=== PATIENT | female | born 1950 | race Caucasian/White ===

== ENCOUNTER 2017-09-27 14:55 | Inpatient (IN) | payer MEDICARE, BC ==
[~2017-09-27] VITALS: Ht 160 cm; Wt 60.3 kg
[~2017-09-27 14:55] MED LIST: CLON1TAB PO; DONE5TAB14 PO; LEVO50TA5 PO; OMEP10CA4 PO; SERT25TA3 PO; [UNRECOGNIZED DRUG - OTHER]
[2017-09-27] MEDS ORDERED: CYAN1TAB29 PO (15:19)
[2017-09-27] MEDS ORDERED: CLON1TAB PO (15:19)
[2017-09-27] MEDS ORDERED: LOSA100T2 PO (15:19)
[2017-09-27] MEDS ORDERED: MEMA5TAB PO (15:19)
[2017-09-27] MEDS ORDERED: LEVO112T2 PO (15:19)
[2017-09-27] MEDS ORDERED: VORT10TA PO (15:19)
[2017-09-27] MEDS ORDERED: vitamin e PO (15:19)
[2017-09-27] MEDS ORDERED: CHOL5000 PO (15:19)
[2017-09-27] MEDS ORDERED: ELUX100T PO (15:19)
[2017-09-27] MEDS ORDERED: SODIUM CHLORIDE FLUSH 10ML SYR IVF ONE (15:30)
[2017-09-27 15:43] LABS: HEMATOCRIT 37.4 % (34.6-47.8); HEMOGLOBIN 12.7 g/dL (11.7-16.4); WHITE BLOOD COUNT 5.3 x10^3/uL (3.4-10)
[2017-09-27 15:52] LABS: ASPARTATE AMINO TRANSFERASE 13 U/L (15-37); BLOOD UREA NITROGEN 15 mg/dL (7-18)
[2017-09-27 15:58] LABS: IS PT STATUS REG ER OR PRE ER? YES
[2017-09-27] MEDS ORDERED: HYDROcodone/APAP 5/325 TABLET PO PRN (17:30)
[2017-09-27] MEDS ORDERED: LABETALOL 5MG/ML, 20ML IVPush PRN (17:30)
[2017-09-27] MEDS ORDERED: ENALAPRILAT 1.25 MG/ML, 2ML IVPush PRN (17:30)
[2017-09-27] MEDS ORDERED: ENOXAPARIN 40 MG/0.4 ML SQ SCH (17:30)
[2017-09-27] MEDS ORDERED: NITROGLYCERIN 0.4 MG BOTTLE (25 TABS) SL PRN (17:30)
[2017-09-27] MEDS ORDERED: ONDANSETRON ODT 4 MG PO PRN (17:30)
[2017-09-27 19:30] VITALS: BP 85/52
[2017-09-27 20:46] LABS: IS PT STATUS REG ER OR PRE ER? NO
[2017-09-27] MEDS ORDERED: ELUXADOLINE PO SCH (21:00)
[2017-09-27 21:30] VITALS: BP 104/56
[2017-09-27] MEDS ORDERED: HEPARIN 5,000 UNITS/ML, 1ML IV ONE (22:00)
[2017-09-27] MEDS: VITAMIN E 400 UNITS CAPSULE PO SCH (22:14)
[2017-09-27] MEDS: ATORVASTATIN 20 MG TABLET PO SCH (22:14)
[2017-09-27] MEDS: MEMANTINE 5MG TABLET PO SCH (22:14)
[2017-09-27] MEDS: HEPARIN 25,000 UNITS/500ML PMX 500 ML IV PRN (22:42)
[2017-09-28] VITALS (7 sets, daily range): BP systolic 99–165; BP diastolic 66–100
[2017-09-28 02:29] LABS: HEMATOCRIT 33.5 % (34.6-47.8); HEMOGLOBIN 11.4 g/dL (11.7-16.4); WHITE BLOOD COUNT 5.5 x10^3/uL (3.4-10)
[2017-09-28 02:38] LABS: BLOOD UREA NITROGEN 18 mg/dL (7-18)
[2017-09-28 02:42] LABS: ASPARTATE AMINO TRANSFERASE 11 U/L (15-37); IS PT STATUS REG ER OR PRE ER? NO
[2017-09-28] MEDS: HEPARIN 5,000 UNITS/ML, 1ML IV PRN ×2 (06:15→20:48)
[2017-09-28] MEDS: LEVOTHYROXINE 112 MCG TABLET PO SCH (06:16)
[2017-09-28] MEDS: ASPIRIN 325 MG TABLET EC PO SCH (06:16)
[2017-09-28] MEDS ORDERED: REGADENOSON 0.4 MG/5 ML SYRINGE ONE (07:44)
[2017-09-28] MEDS: NEUTRA PHOS K 250 MG TABLET PO SCH ×2 (08:41→20:46)
[2017-09-28] MEDS: CYANOCOBALAMIN 1,000 MCG TABLET PO SCH (08:41)
[2017-09-28] MEDS: MEMANTINE 5MG TABLET PO SCH (08:41)
[2017-09-28] MEDS: VITAMIN E 400 UNITS CAPSULE PO SCH ×2 (08:42→20:46)
[2017-09-28] MEDS: CHOLECALCIFEROL 1,000 UNIT TABLET PO SCH (08:42)
[2017-09-28] MEDS: ELUXADOLINE HOMEMEDPO SCH ×2 (08:43→20:48)
[2017-09-28] MEDS ORDERED: VORTIOXETINE HYDROBROMIDE HOMEMEDPO SCH (09:00)
[2017-09-28] MEDS: NITROGLYCERIN 0.4 MG BOTTLE (25 TABS) SL PRN ×2 (09:29→09:34)
[2017-09-28] MEDS ORDERED: NITROGLYCERIN 0.4 MG/SPRAY SL PRN (09:30)
[2017-09-28] MEDS ORDERED: DONE10TA7 PO (09:41)
[2017-09-28] MEDS ORDERED: SERT100T5 PO (09:44)
[2017-09-28] MEDS: SERTRALINE 100MG TABLET PO SCH (12:32)
[2017-09-28] MEDS: ATORVASTATIN 20 MG TABLET PO SCH (20:46)
[2017-09-28] MEDS: MEMANTINE 10MG TABLET PO SCH (20:54)
[2017-09-29 02:19] VITALS: BP 118/82
[2017-09-29] MEDS: LEVOTHYROXINE 112 MCG TABLET PO SCH (06:19)
[2017-09-29] MEDS: ASPIRIN 325 MG TABLET EC PO SCH (06:19)
[2017-09-29] MEDS: HEPARIN 25,000 UNITS/500ML PMX 500 ML IV PRN (06:37)
[2017-09-29 06:59] VITALS: BP 130/84
[2017-09-29] MEDS: ELUXADOLINE HOMEMEDPO SCH ×2 (09:00→09:06)
[2017-09-29] MEDS: MEMANTINE 10MG TABLET PO SCH (09:05)
[2017-09-29] MEDS: CHOLECALCIFEROL 1,000 UNIT TABLET PO SCH (09:05)
[2017-09-29] MEDS: VITAMIN E 400 UNITS CAPSULE PO SCH (09:05)
[2017-09-29] MEDS: CYANOCOBALAMIN 1,000 MCG TABLET PO SCH (09:06)
[2017-09-29] MEDS ORDERED: LISINOPRIL 5 MG TABLET PO SCH (10:30)
[2017-09-29] MEDS ORDERED: CARVEDILOL 3.125 MG TABLET PO SCH (10:30)
[2017-09-29 10:48] LABS: HEMATOCRIT 37.9 % (34.6-47.8); HEMOGLOBIN 12.8 g/dL (11.7-16.4); WHITE BLOOD COUNT 3.8 x10^3/uL (3.4-10)
[2017-09-29 10:54] LABS: BLOOD UREA NITROGEN 14 mg/dL (7-18)
[2017-09-29] MEDS: HEPARIN 5,000 UNITS/ML, 1ML IV PRN (11:09)
[2017-09-29] MEDS ORDERED: LIDOCAINE 2%, 20ML ONE (11:40)
[2017-09-29] MEDS ORDERED: VERAPAMIL 2.5 MG/ML, 2ML ONE (11:40)
[2017-09-29] MEDS ORDERED: FENTANYL PF 100 MCG/2ML ONE (11:40)
[2017-09-29] MEDS ORDERED: TICAGRELOR 90 MG TABLET ONE (11:40)
[2017-09-29] MEDS ORDERED: BIVALIRUDIN 250 MG ONE (11:40)
[2017-09-29] MEDS ORDERED: MIDAZOLAM 1 MG/ML, 5ML ONE (11:41)
[2017-09-29] MEDS ORDERED: HEPARIN 1,000 UNITS/ML, 10ML ONE (11:41)
[2017-09-29] MEDS ORDERED: SODIUM CHLORIDE 0.9% 1,000 ML IV SCH (12:42)
[2017-09-29] MEDS ORDERED: CARV3.1212 PO ×2 (13:20→15:46)
[2017-09-29] MEDS ORDERED: LISI5TAB7 PO (13:20)
[2017-09-29] MEDS ORDERED: ATOR20TA9 PO (13:20)
[2017-09-29] MEDS ORDERED: ASPI-496 PO (13:22)
[2017-09-29] MEDS: SERTRALINE 100MG TABLET PO SCH (13:42)
[2017-09-29 14:55] VITALS: BP 114/71
[2017-09-30] MEDS ORDERED: CARVEDILOL 3.125 MG TABLET PO SCH (09:00)
== END 2017-09-29 17:50 | disposition home health service (06) | DRG 287 ==
LOC: ED 15:51 → EDIP 16:23 → 5SO 18:38
PROVIDERS: ADMIT Internal Medicine; ATTEND Internal Medicine
PROC: 4A023N7 Measurement of Cardiac Sampling and Pressure, Left Heart, Percutaneous Approach (ICD-10-PCS; principal; 2017-09-29)
PROC: B2111ZZ Fluoroscopy of Multiple Coronary Arteries using Low Osmolar Contrast (ICD-10-PCS; 2017-09-29)
PROC: B2151ZZ Fluoroscopy of Left Heart using Low Osmolar Contrast (ICD-10-PCS; 2017-09-29)
DX: R07.9 Chest pain, unspecified (principal); G30.0 Alzheimer's disease with early onset; I08.1 Rheumatic disorders of both mitral and tricuspid valves; I42.9 Cardiomyopathy, unspecified; F02.80 Dementia in other diseases classified elsewhere, unspecified severity, without behavioral disturbance, psychotic disturbance, mood disturbance, and anxiety; E03.9 Hypothyroidism, unspecified; F32.9 Major depressive disorder, single episode, unspecified; F41.1 Generalized anxiety disorder; I10 Essential (primary) hypertension; K21.9 Gastro-esophageal reflux disease without esophagitis; E05.90 Thyrotoxicosis, unspecified without thyrotoxic crisis or storm; R60.0 Localized edema; K58.9 Irritable bowel syndrome, unspecified; Z80.0 Family history of malignant neoplasm of digestive organs; Z81.8 Family history of other mental and behavioral disorders; Z82.49 Family history of ischemic heart disease and other diseases of the circulatory system; Z87.891 Personal history of nicotine dependence
CPT/HCPCS: 36415; 71010; 80048; 80053; 80061; 81001; 83690; 83735; 84100; 84439; 84443; 84484; 85025; 85379; 85520; 85610; 87086; 93005; 93306; 93458; 99156; 99285; C1769; C1894; J0583; J1644; J2250; J2785; J3010; J3490; Q9967

== ENCOUNTER → 2018-05-25 | Outpatient (CLI) | payer MEDICARE, BC ==
[~2018-05-25] MED LIST changes: +ASPI-496 PO; +ATOR20TA9 PO; +CARV3.1212 PO; +CARV6.252 PO; +CHOL5000 PO; +CYAN1TAB29 PO; +DONE10TA7 PO; +ELUX100T PO; +LEVO112T2 PO; +LISI5TAB7 PO; +LOSA100T2 PO; +MEMA5TAB PO; +SERT100T5 PO; +VORT10TA PO; +viberzi PO; +vitamin e PO
== END | disposition home or self-care (01) ==
LOC: CFH 09:24 → EDSTATUS 10:00
DX: Z12.31 Encounter for screening mammogram for malignant neoplasm of breast (principal); Z13.820 Encounter for screening for osteoporosis; M85.89 Other specified disorders of bone density and structure, multiple sites; N95.9 Unspecified menopausal and perimenopausal disorder
CPT/HCPCS: 77080; 77067

== ENCOUNTER 2018-06-17 11:29 | Inpatient (IN) | payer MEDICARE, BC ==
[~2018-06-17] VITALS: Ht 162.6 cm; Wt 53.4 kg
[2018-06-17] MEDS ORDERED: MAALOX/HYOSCYAMINE/LIDOCAINE 45 ML BTL ONE (12:18)
[2018-06-17] MEDS ORDERED: LORazepam 0.5MG TABLET ONE (12:18)
[2018-06-17] MEDS ORDERED: MAALOX/HYOSCYAMINE/LIDOCAINE 45 ML BTL PO ONE (12:30)
[2018-06-17] MEDS ORDERED: LORazepam 0.5MG TABLET PO ONE (12:30)
[2018-06-17 12:47] LABS: BASOPHILS # (AUTO) 0.05 x10^3/uL (0-0.1); BASOPHILS % (AUTO) 1 % (0-1); EOSINOPHILS % (AUTO) 1 % (1-7); LYMPHOCYTES # (AUTO) 2.61 x10^3/uL (1-3.4); LYMPHOCYTES % (AUTO) 33 % (22-44); MD NO; MEAN CORPUSCULAR HEMOGLOBIN 30.5 pg (27.0-34.8); MEAN CORPUSCULAR HGB CONC 33.7 g/dL (32.4-35.8); MEAN CORPUSCULAR VOLUME 90.5 fL (80-100); MONOCYTES % (AUTO) 9 % (2-9); NEUTROPHILS # (AUTO) 4.48 x10^3/uL (1.8-6.8); NEUTROPHILS % (AUTO) 56 % (42-75); PLATELET COUNT 226 x10^3/uL (130-400); RED BLOOD COUNT 4.64 x10^6/uL (3.82-5.3); RED CELL DISTRIBUTION WIDTH 13.8 % (9.6-15.2)
[2018-06-17 12:57] LABS: INTERNATIONAL NORMALIZED RATIO 1.04 (0.93-1.1); PROTHROMBIN TIME 10.7 Seconds (9.6-11.5)
[2018-06-17 13:01] LABS: ALBUMIN 4.1 g/dL (3.4-5.0); ANION GAP 8 mmol/L (5-15); CALCIUM 9.4 mg/dL (8.5-10.1); CHLORIDE 109 mmol/L (98-107)
[2018-06-17 13:07] LABS: ALANINE AMINOTRANSFERASE 34 U/L (12-78); ALKALINE PHOSPHATASE 62 U/L (45-117); BILIRUBIN,TOTAL 0.8 mg/dL (0.2-1.0); CREATININE 1.11 mg/dL (0.55-1.02); TOTAL PROTEIN 7.6 g/dL (6.4-8.2); TROPONIN I 0.092 ng/mL (0.000-0.045)
[2018-06-17] MEDS ORDERED: ACETAMINOPHEN 650 MG/20.3 ML UDC PO PRN (15:00)
[2018-06-17] MEDS ORDERED: NITROGLYCERIN SINGLE TAB 0.4 MG SL PRN (15:00)
[2018-06-17] MEDS ORDERED: morphine SULFATE 10 MG/ML, 1ML IV PRN (15:00)
[2018-06-17] MEDS ORDERED: ONDANSETRON 2MG/ML, 2ML IVP PRN (15:00)
[2018-06-17] MEDS ORDERED: HEPARIN 5,000 UNITS/ML, 1ML SQ SCH (15:00)
[2018-06-17] MEDS ORDERED: NITROGLYCERIN 0.4 MG/SPRAY SL PRN (15:00)
[2018-06-17] MEDS ORDERED: ASPIRIN 325 MG TABLET EC PO ONE (15:00)
[2018-06-17] MEDS ORDERED: NITROGLYCERIN 0.4 MG BOTTLE (25 TABS) SL PRN (15:00)
[2018-06-17 15:24] VITALS: BP 96/68
[2018-06-17] MEDS ORDERED: MAALOX/HYOSCYAMINE/LIDOCAINE 45 ML BTL PO PRN (15:30)
[2018-06-17] MEDS ORDERED: CALCIUM CARBONATE 500 MG TAB.CHEW PO PRN (15:30)
[2018-06-17 15:32] LABS: THYROID STIMULATING HORMONE 5.06 mIU/L (0.358-3.740)
[2018-06-17] MEDS ORDERED: MEGE20TA PO (16:26)
[2018-06-17] MEDS ORDERED: ELUX100T PO (16:26)
[2018-06-17 19:42] VITALS: BP 103/69
[2018-06-17] MEDS: MEMANTINE 10MG TABLET PO SCH (22:30)
[2018-06-17] MEDS ORDERED: ENOXAPARIN 60 MG/0.6 ML SQ ONE (22:30)
[2018-06-17] MEDS: DONEPEZIL 10 MG TABLET PO SCH (22:30)
[2018-06-17] MEDS: CARVEDILOL 6.25 MG TABLET PO SCH (22:30)
[2018-06-17] MEDS: OMEPRAZOLE 20 MG CAPSULE.DR PO SCH (22:30)
[2018-06-17] MEDS: SODIUM CHLORIDE FLUSH 10ML SYR IVF SCH (22:31)
[2018-06-17 22:43] LABS: MICROSCOPIC INDICATED
[2018-06-17 22:44] LABS: CULTURE INDICATED? YES
[2018-06-18 03:37] VITALS: BP_SYST 88; BP_SYST 90; BP_DIAS 58; BP_DIAS 60
[2018-06-18 05:34] LABS: ANION GAP 7 mmol/L (5-15); CHLORIDE 112 mmol/L (98-107); CHOLESTEROL, TOTAL 151 mg/dL (140-239); CREATININE 1.18 mg/dL (0.55-1.02)
[2018-06-18 05:35] LABS: CHOL/HDL RATIO 2.8; HDL CHOL % 36 % (28-40); HDL CHOLESTEROL (DIRECT) 54 mg/dL (40-60); LDL CHOLESTEROL,CALCULATED 78 mg/dL (54-169); LDL/HDL RATIO 1.4 (0.5-3.0); TRIGLYCERIDES 95 mg/dL (50-200); VLDL CHOLESTEROL 19 mg/dL (0-25)
[2018-06-18] MEDS: ASPIRIN 325 MG TABLET EC PO SCH (06:15)
[2018-06-18 06:23] LABS: BASOPHILS # (AUTO) 0.04 x10^3/uL (0-0.1); BASOPHILS % (AUTO) 1 % (0-1); EOSINOPHILS # (AUTO) 0.08 x10^3/uL (0-0.4); EOSINOPHILS % (AUTO) 2 % (1-7); LYMPHOCYTES # (AUTO) 1.94 x10^3/uL (1-3.4); LYMPHOCYTES % (AUTO) 38 % (22-44); MD NO; MEAN CORPUSCULAR HEMOGLOBIN 30.5 pg (27.0-34.8); MEAN CORPUSCULAR HGB CONC 33.4 g/dL (32.4-35.8); MEAN CORPUSCULAR VOLUME 91.5 fL (80-100); MEAN PLATELET VOLUME 9.6 fL (7.4-10.4); MONOCYTES # (AUTO) 0.46 x10^3/uL (0.2-0.8); MONOCYTES % (AUTO) 9 % (2-9); NEUTROPHILS % (AUTO) 51 % (42-75); PLATELET COUNT 166 x10^3/uL (130-400); RED BLOOD COUNT 4.05 x10^6/uL (3.82-5.3); RED CELL DISTRIBUTION WIDTH 13.5 % (9.6-15.2)
[2018-06-18 07:09] VITALS: BP 96/66
[2018-06-18] MEDS: SODIUM CHLORIDE FLUSH 10ML SYR IVF SCH ×2 (08:36→21:27)
[2018-06-18] MEDS: SERTRALINE 100MG TABLET PO SCH (08:37)
[2018-06-18] MEDS: MEMANTINE 10MG TABLET PO SCH ×2 (08:37→21:25)
[2018-06-18] MEDS: LEVOTHYROXINE 112 MCG TABLET PO SCH (08:37)
[2018-06-18] MEDS: CARVEDILOL 6.25 MG TABLET PO SCH (08:37)
[2018-06-18] MEDS: OMEPRAZOLE 20 MG CAPSULE.DR PO SCH ×2 (08:37→21:24)
[2018-06-18] MEDS ORDERED: TEMPLATE NON-FORMULARY MED. (Aspirin** (Aspir 81**) 81 MG) PO SCH (09:00)
[2018-06-18] MEDS: ENOXAPARIN 60 MG/0.6 ML SQ SCH ×2 (11:07→21:24)
[2018-06-18 12:13] VITALS: BP 100/66
[2018-06-18] MEDS ORDERED: ERGOCALCIFEROL 50,000 UNIT CAPSULE PO SCH (16:00)
[2018-06-18] MEDS ORDERED: CARVEDILOL 6.25 MG TABLET PO SCH (21:00)
[2018-06-18 21:23] VITALS: BP 119/78
[2018-06-18] MEDS: DONEPEZIL 10 MG TABLET PO SCH (21:24)
[2018-06-18] MEDS: CARVEDILOL 3.125 MG TABLET PO SCH (21:25)
[2018-06-19 03:51] VITALS: BP 120/81
[2018-06-19 06:10] LABS: ANION GAP 5 mmol/L (5-15); CALCIUM 8.8 mg/dL (8.5-10.1); CHLORIDE 113 mmol/L (98-107); CREATININE 0.99 mg/dL (0.55-1.02)
[2018-06-19] MEDS: ASPIRIN 325 MG TABLET EC PO SCH (06:11)
[2018-06-19 06:14] LABS: TROPONIN I 0.102 ng/mL (0.000-0.045)
[2018-06-19 07:19] VITALS: BP 128/83
[2018-06-19] MEDS: SERTRALINE 100MG TABLET PO SCH (08:04)
[2018-06-19] MEDS: MEMANTINE 10MG TABLET PO SCH (08:04)
[2018-06-19] MEDS: LEVOTHYROXINE 112 MCG TABLET PO SCH (08:04)
[2018-06-19] MEDS: OMEPRAZOLE 20 MG CAPSULE.DR PO SCH (08:04)
[2018-06-19] MEDS: SODIUM CHLORIDE FLUSH 10ML SYR IVF SCH (08:05)
[2018-06-19] MEDS: CARVEDILOL 3.125 MG TABLET PO SCH (08:05)
[2018-06-19] MEDS: ENOXAPARIN 60 MG/0.6 ML SQ SCH (09:41)
[2018-06-19] MEDS ORDERED: OMEP-110 PO (12:20)
[2018-06-19] MEDS ORDERED: CALC200T24 PO (12:20)
[2018-06-19] MEDS ORDERED: CARV3.1212 PO (12:20)
[2018-06-19 13:15] VITALS: BP 139/85
== END 2018-06-19 15:23 | disposition home or self-care (01) | DRG 282 ==
LOC: ED 13:41 → INTOOBSV 13:59 → OBSVTOIN 13:59 → EDIP 13:59 → 5SO 15:10 → DCLOUNGE 06-19 14:59
PROVIDERS: ADMIT Hospitalist; ATTEND Hospitalist
PROC: 0T9B70Z Drainage of Bladder with Drainage Device, Via Natural or Artificial Opening (ICD-10-PCS; principal; 2018-06-17)
DX: I21.4 Non-ST elevation (NSTEMI) myocardial infarction (principal); K21.9 Gastro-esophageal reflux disease without esophagitis; E03.9 Hypothyroidism, unspecified; E55.9 Vitamin D deficiency, unspecified; F03.90 Unspecified dementia, unspecified severity, without behavioral disturbance, psychotic disturbance, mood disturbance, and anxiety; J44.9 Chronic obstructive pulmonary disease, unspecified; F41.9 Anxiety disorder, unspecified; F32.9 Major depressive disorder, single episode, unspecified; I44.0 Atrioventricular block, first degree; Z87.891 Personal history of nicotine dependence; Z82.49 Family history of ischemic heart disease and other diseases of the circulatory system; Z80.0 Family history of malignant neoplasm of digestive organs
CPT/HCPCS: 36415; 70450; 71045; 80048; 80053; 80061; 81001; 82140; 83735; 84443; 84484; 85025; 85610; 85730; 87086; 93005; 93306; 99285; G0378; J1644; J1650

== ENCOUNTER → 2018-06-30 | Outpatient (CLI) | payer MEDICARE, BC ==
[~2018-06-30] MED LIST changes: +CALC200T24 PO; +MEGE20TA PO; +OMEP-110 PO
== END | disposition home or self-care (01) ==
LOC: CFH 13:20
DX: R92.8 Other abnormal and inconclusive findings on diagnostic imaging of breast (principal)
CPT/HCPCS: 77065

== ENCOUNTER → 2018-10-09 | Outpatient (CLI) | payer MEDICARE, BC ==
[~2018-10-09] MED LIST changes: +ATOR20TA37 PO; -ATOR20TA9 PO; +GADOBUTROL 7.5 MMOL/7.5 ML VIAL ONE
== END | disposition home or self-care (01) ==
LOC: CFH 13:37
PROVIDERS: ATTEND Psychiatry & Neurology Neurology
DX: G31.9 Degenerative disease of nervous system, unspecified (principal)
CPT/HCPCS: 70553; 82565; A9585

== ENCOUNTER → 2018-11-02 | Outpatient (CLI) | payer MEDICARE, BC ==
[~2018-11-02] MED LIST changes: -GADOBUTROL 7.5 MMOL/7.5 ML VIAL ONE
== END | disposition home or self-care (01) ==
LOC: CFH 15:01
PROVIDERS: ATTEND Emergency Medicine
DX: N95.0 Postmenopausal bleeding (principal)
CPT/HCPCS: 76830

== ENCOUNTER 2018-11-04 14:18 | Outpatient (CLI) | payer MEDICARE, BC ==
[~2018-11-04 14:18] MED LIST changes: +SERT100T32 PO; -SERT100T5 PO
== END 2018-11-04 23:59 | disposition home or self-care (01) ==
LOC: WOUND 14:18
PROVIDERS: ATTEND Internal Medicine
DX: L89.159 Pressure ulcer of sacral region, unspecified stage (principal); L89.329 Pressure ulcer of left buttock, unspecified stage; L89.43 Pressure ulcer of contiguous site of back, buttock and hip, stage 3; N39.42 Incontinence without sensory awareness; F03.90 Unspecified dementia, unspecified severity, without behavioral disturbance, psychotic disturbance, mood disturbance, and anxiety; I10 Essential (primary) hypertension; E03.9 Hypothyroidism, unspecified; J45.909 Unspecified asthma, uncomplicated; E78.5 Hyperlipidemia, unspecified; F32.9 Major depressive disorder, single episode, unspecified; E78.00 Pure hypercholesterolemia, unspecified; I25.2 Old myocardial infarction; F41.9 Anxiety disorder, unspecified; I25.10 Atherosclerotic heart disease of native coronary artery without angina pectoris; Z86.73 Personal history of transient ischemic attack (TIA), and cerebral infarction without residual deficits
CPT/HCPCS: 97597; G0463

== ENCOUNTER → 2018-11-11 | Outpatient (CLI) | payer MEDICARE, BC | END | disposition home or self-care (01) | LOC: WOUND 14:28 | PROVIDERS: ATTEND Internal Medicine | DX: L89.43 Pressure ulcer of contiguous site of back, buttock and hip, stage 3 (principal); N39.42 Incontinence without sensory awareness; L89.153 Pressure ulcer of sacral region, stage 3; J45.909 Unspecified asthma, uncomplicated; E78.00 Pure hypercholesterolemia, unspecified; F32.9 Major depressive disorder, single episode, unspecified; I10 Essential (primary) hypertension; E03.9 Hypothyroidism, unspecified; I25.2 Old myocardial infarction; F41.9 Anxiety disorder, unspecified; F03.90 Unspecified dementia, unspecified severity, without behavioral disturbance, psychotic disturbance, mood disturbance, and anxiety; E78.5 Hyperlipidemia, unspecified; Z86.73 Personal history of transient ischemic attack (TIA), and cerebral infarction without residual deficits | CPT/HCPCS: 97597 ==

== ENCOUNTER 2018-11-18 14:20 | Outpatient (CLI) | payer MEDICARE, BC | END 2018-11-18 23:59 | disposition home or self-care (01) | LOC: WOUND 14:20 | PROVIDERS: ATTEND Internal Medicine | DX: L89.43 Pressure ulcer of contiguous site of back, buttock and hip, stage 3 (principal); L89.153 Pressure ulcer of sacral region, stage 3; J45.909 Unspecified asthma, uncomplicated; N39.42 Incontinence without sensory awareness; E78.00 Pure hypercholesterolemia, unspecified; F32.9 Major depressive disorder, single episode, unspecified; I10 Essential (primary) hypertension; E03.9 Hypothyroidism, unspecified; I25.2 Old myocardial infarction; F41.9 Anxiety disorder, unspecified; G30.8 Other Alzheimer's disease; F02.80 Dementia in other diseases classified elsewhere, unspecified severity, without behavioral disturbance, psychotic disturbance, mood disturbance, and anxiety; I25.10 Atherosclerotic heart disease of native coronary artery without angina pectoris; E78.5 Hyperlipidemia, unspecified; Z86.73 Personal history of transient ischemic attack (TIA), and cerebral infarction without residual deficits | CPT/HCPCS: G0463 ==

== ENCOUNTER → 2018-11-25 | Outpatient (CLI) | payer MEDICARE, BC | END | disposition home or self-care (01) | LOC: WOUND 10:28 | PROVIDERS: ATTEND Internal Medicine Cardiovascular Disease | DX: L89.43 Pressure ulcer of contiguous site of back, buttock and hip, stage 3 (principal); N39.42 Incontinence without sensory awareness; J45.909 Unspecified asthma, uncomplicated; I10 Essential (primary) hypertension; F03.90 Unspecified dementia, unspecified severity, without behavioral disturbance, psychotic disturbance, mood disturbance, and anxiety; E78.00 Pure hypercholesterolemia, unspecified; F32.9 Major depressive disorder, single episode, unspecified; E03.9 Hypothyroidism, unspecified; I25.2 Old myocardial infarction; F41.9 Anxiety disorder, unspecified; E78.5 Hyperlipidemia, unspecified; I25.10 Atherosclerotic heart disease of native coronary artery without angina pectoris; Z86.73 Personal history of transient ischemic attack (TIA), and cerebral infarction without residual deficits | CPT/HCPCS: G0463 ==